=== PATIENT | male | born 1970 | race Caucasian/White ===

== ENCOUNTER 2016-09-27 13:22 | Observation (INO) | payer MEDICAID ==
[~2016-09-27] VITALS: Ht 170.2 cm; Wt 72.7 kg
[~2016-09-27 13:22] MED LIST: ARIP15TA2 PO; ASPI-621 PO; ATOR40TA78 PO; CARV3.122 PO; GLIP5TAB10 PO; HUM100VI6 SC; HYDR50CA2 PO; INSU100I13 SQ-INSULIN; INSU500V SC; ISOS60TA36 PO; LISI-167 PO; LISI2.5T PO; METF10002 PO; METO25TA35 PO; NICO1PAT5 TD; RANO500T2 PO; TICA90TA PO
[2016-09-27] MEDS ORDERED: PLEASE ENTER HEIGHT AND WEIGHT MC SCH (14:00)
[2016-09-27] MEDS ORDERED: SODIUM CHLORIDE FLUSH 10ML SYR IVF ONE (14:00)
[2016-09-27 14:09] LABS: HEMOGLOBIN 15.9 g/dL (13.7-18.0)
[2016-09-27 14:24] LABS: ASPARTATE AMINO TRANSFERASE 7 U/L (15-37); BLOOD UREA NITROGEN 21 mg/dL (7-18)
[2016-09-27 14:28] LABS: IS PT STATUS REG ER OR PRE ER? YES
[2016-09-27] MEDS ORDERED: SODIUM CHLORIDE FLUSH 10ML SYR IVF PRN (15:00)
[2016-09-27] MEDS ORDERED: ACETAMINOPHEN 325 MG TABLET PO PRN (16:30)
[2016-09-27] MEDS ORDERED: ONDANSETRON 2MG/ML, 2ML IVP PRN (16:30)
[2016-09-27] MEDS ORDERED: ENALAPRILAT 1.25 MG/ML, 2ML IVPush PRN ×2 (16:30→20:26)
[2016-09-27] MEDS ORDERED: MORPHINE SULFATE 4 MG/ML, 1ML IVPush PRN (16:30)
[2016-09-27] MEDS ORDERED: NITROGLYCERIN 0.4 MG BOTTLE (25 TABS) SL PRN (16:30)
[2016-09-27] MEDS: INSULIN REGULAR 100 UNITS/ML, 3ML VIAL SQ-INSULIN SCH ×2 (16:30→21:00)
[2016-09-27] MEDS ORDERED: NITROGLYCERIN 0.4 MG/SPRAY SL PRN (16:30)
[2016-09-27 16:52] VITALS: BP 126/78
[2016-09-27] MEDS ORDERED: INSULIN DETEMIR 100 UNITS/ML, PEN SQ-INSULIN PRN (17:00)
[2016-09-27 18:17] LABS: IS PT STATUS REG ER OR PRE ER? NO
[2016-09-27 20:35] VITALS: BP 105/68
[2016-09-27] MEDS ORDERED: ARIPIPRAZOLE 15 MG TABLET PO SCH (21:00)
[2016-09-27] MEDS ORDERED: ATORVASTATIN 40 MG TABLET PO SCH (21:00)
[2016-09-27] MEDS ORDERED: INSULIN DETEMIR 100 UNITS/ML, PEN SQ-INSULIN SCH (21:00)
[2016-09-27] MEDS: TICAGRELOR 90 MG TABLET PO SCH (22:22)
[2016-09-27 23:06] LABS: IS PT STATUS REG ER OR PRE ER? NO
[2016-09-28 03:10] VITALS: BP 109/71
[2016-09-28] MEDS ORDERED: ASPIRIN 325 MG TABLET EC PO SCH (06:00)
[2016-09-28] MEDS ORDERED: ASPIRIN 81 MG TABLET EC PO SCH (06:00)
[2016-09-28 07:01] VITALS: BP 96/59
[2016-09-28] MEDS ORDERED: REGADENOSON 0.4 MG/5 ML SYRINGE ONE (08:25)
[2016-09-28] MEDS: INSULIN REGULAR 100 UNITS/ML, 3ML VIAL SQ-INSULIN SCH ×3 (08:42→17:17)
[2016-09-28] MEDS ORDERED: LISINOPRIL 5 MG TABLET PO SCH (09:00)
[2016-09-28 11:46] VITALS: BP 113/72
[2016-09-28] MEDS: TICAGRELOR 90 MG TABLET PO SCH (11:47)
[2016-09-28 13:22] VITALS: BP 112/70
[2016-09-28] MEDS ORDERED: ARIP15TA2 PO (18:11)
[2016-09-28] MEDS ORDERED: TICA90TA PO (18:11)
[2016-09-28] MEDS ORDERED: ASPI-621 PO (18:11)
[2016-09-28] MEDS ORDERED: CARV3.12 PO (18:11)
[2016-09-28] MEDS ORDERED: ATOR40TA78 PO (18:11)
[2016-09-28] MEDS ORDERED: LISI5TAB7 PO (18:11)
[2016-09-28] MEDS ORDERED: INSU100I28 SQ-INSULIN (18:11)
[2016-09-28] MEDS ORDERED: METF10002 PO (18:11)
== END 2016-09-28 19:15 | disposition home or self-care (01) ==
LOC: ED 13:47 → INTOOBSV 14:54 → EDIP 14:54 → 5SO 16:44
PROVIDERS: ADMIT Family Medicine; ATTEND Family Medicine
DX: R07.9 Chest pain, unspecified (principal); E11.65 Type 2 diabetes mellitus with hyperglycemia; I21.4 Non-ST elevation (NSTEMI) myocardial infarction; I25.2 Old myocardial infarction; F31.9 Bipolar disorder, unspecified; I25.110 Atherosclerotic heart disease of native coronary artery with unstable angina pectoris; E87.1 Hypo-osmolality and hyponatremia; I11.0 Hypertensive heart disease with heart failure; I50.42 Chronic combined systolic (congestive) and diastolic (congestive) heart failure; F17.210 Nicotine dependence, cigarettes, uncomplicated; Z95.1 Presence of aortocoronary bypass graft; Z79.4 Long term (current) use of insulin
CPT/HCPCS: 36415; 71010; 78452; 80053; 80061; 82962; 83036; 83880; 84484; 85025; 93005; 93017; 96372; 99285; A9502; C9898; G0378; J1815; J2785

== ENCOUNTER 2017-02-07 09:02 | Emergency (ER) | payer MEDICAID ==
[~2017-02-07] VITALS: Ht 170.2 cm; Wt 75.0 kg
[~2017-02-07 09:02] MED LIST changes: +CARV3.12 PO; +INSU100I28 SQ-INSULIN; +LISI5TAB7 PO
[2017-02-07 09:07] VITALS: BP 97/64
[2017-02-07] MEDS ORDERED: SODIUM CHLORIDE FLUSH 10ML SYR IVF ONE (09:30)
[2017-02-07 09:47] LABS: ASPARTATE AMINO TRANSFERASE 11 U/L (15-37); BLOOD UREA NITROGEN 15 mg/dL (7-18)
[2017-02-07 09:54] LABS: IS PT STATUS REG ER OR PRE ER? YES
== END 2017-02-07 11:40 | disposition home or self-care (01) ==
LOC: ED 09:29
DX: M94.0 Chondrocostal junction syndrome [Tietze] (principal); Z76.0 Encounter for issue of repeat prescription; I10 Essential (primary) hypertension; E11.65 Type 2 diabetes mellitus with hyperglycemia; I25.10 Atherosclerotic heart disease of native coronary artery without angina pectoris; I25.2 Old myocardial infarction; F17.210 Nicotine dependence, cigarettes, uncomplicated; Z95.1 Presence of aortocoronary bypass graft; Z95.5 Presence of coronary angioplasty implant and graft
CPT/HCPCS: 36415; 71010; 80053; 84484; 85025; 93005; 99285

== ENCOUNTER 2017-02-13 21:16 | Inpatient (IN) | payer MEDICAID ==
[~2017-02-13] VITALS: Ht 170.2 cm; Wt 81.2 kg
[2017-02-13] MEDS ORDERED: PIPERACILLIN/TAZO/PMX 3.375GM 50 ML IVPB ONE (23:00)
[2017-02-13] MEDS ORDERED: MORPHINE SULFATE 4 MG/ML, 1ML IVPush PRN (23:00)
[2017-02-13] MEDS ORDERED: VANCOMYCIN PER PHARMACY IV ONE (23:00)
[2017-02-13] MEDS ORDERED: SODIUM CHLORIDE 0.9% 1,000ML IVBOLUS ONE (23:00)
[2017-02-13] MEDS ORDERED: VANCOMYCIN 1,400 MG in SODIUM CHLORIDE 0.9% 250 ML IV ONE (23:00)
[2017-02-13] MEDS ORDERED: ONDANSETRON 2MG/ML, 2ML IVPush ONE (23:00)
[2017-02-13] MEDS ORDERED: MORPHINE SULFATE 4 MG/ML, 1ML ONE (23:08)
[2017-02-13] MEDS ORDERED: PIPERACILLIN/TAZO/PMX 3.375GM 50 ML ONE (23:08)
[2017-02-13] MEDS ORDERED: ONDANSETRON 2MG/ML, 2ML ONE (23:08)
[2017-02-13 23:18] LABS: HEMATOCRIT 43.1 % (39.2-51.8); HEMOGLOBIN 14.3 g/dL (13.7-18.0); WHITE BLOOD COUNT 10.4 x10^3/uL (3.4-10)
[2017-02-13] MEDS ORDERED: INSU100V8 SQ (23:25)
[2017-02-13 23:28] LABS: BLOOD UREA NITROGEN 14 mg/dL (7-18)
[2017-02-14] MEDS ORDERED: INSULIN REGULAR 100 UNITS/ML, 3ML VIAL IVPush ONE
[2017-02-14] MEDS ORDERED: SODIUM CHLORIDE 0.9% 1,000ML IVBOLUS ONE
[2017-02-14] MEDS ORDERED: SODIUM CHLORIDE 0.9% 1,000 ML IV ONE (00:03)
[2017-02-14] MEDS ORDERED: INSULIN SINGLE DOSE, ER SQ-INSULIN ONE (00:09)
[2017-02-14] MEDS ORDERED: MORPHINE SULFATE 4 MG/ML, 1ML IVPush PRN ×2 (00:30→07:30)
[2017-02-14] MEDS ORDERED: ONDANSETRON 2MG/ML, 2ML IVPush PRN ×2 (00:30→01:30)
[2017-02-14 00:57] VITALS: BP 136/80
[2017-02-14] MEDS ORDERED: ONDANSETRON ODT 4 MG PO PRN (01:30)
[2017-02-14] MEDS ORDERED: DEXTROSE 4 GM TAB.CHEW PO PRN (01:30)
[2017-02-14] MEDS ORDERED: ACETAMINOPHEN 325 MG TABLET PO PRN (01:30)
[2017-02-14] MEDS ORDERED: VANCOMYCIN PER PHARMACY MC PRN (01:30)
[2017-02-14] MEDS ORDERED: DEXTROSE 50%, 50ML SYRINGE IVPush PRN (01:30)
[2017-02-14] MEDS: INSULIN ASPART 100 UNITS/ML, PEN SQ-INSULIN SCH ×5 (01:30→20:24)
[2017-02-14] MEDS ORDERED: LABETALOL 5MG/ML, 20ML IVPush PRN (01:30)
[2017-02-14] MEDS ORDERED: GLUCAGON 1 MG IM PRN (01:30)
[2017-02-14] MEDS: SODIUM CHLORIDE 0.9% 1,000 ML IV SCH ×2 (02:55→14:58)
[2017-02-14 02:56] LABS: HEMATOCRIT 39.8 % (39.2-51.8); HEMOGLOBIN 13.2 g/dL (13.7-18.0); WHITE BLOOD COUNT 10.6 x10^3/uL (3.4-10)
[2017-02-14] MEDS ORDERED: VANCOMYCIN 1,400 MG in SODIUM CHLORIDE 0.9% 250 ML IV SCH (03:00)
[2017-02-14] MEDS ORDERED: PHARMACOKINETIC MONITORING MC PRN (03:00)
[2017-02-14] MEDS ORDERED: PHARMACOKINETIC CONSULTATION MC ONE (03:00)
[2017-02-14 03:07] LABS: BLOOD UREA NITROGEN 14 mg/dL (7-18)
[2017-02-14] MEDS: PIPERACILLIN/TAZO/PMX 3.375GM 50 ML IV SCH ×4 (04:16→21:58)
[2017-02-14] MEDS: ENOXAPARIN 40 MG/0.4 ML SQ SCH (06:00)
[2017-02-14] MEDS: ASPIRIN 81 MG TABLET EC PO SCH (06:00)
[2017-02-14 07:45] VITALS: BP 129/75
[2017-02-14] MEDS: INSULIN DETEMIR 100 UNITS/ML, PEN SQ-INSULIN SCH ×3 (09:00→20:25)
[2017-02-14] MEDS: LISINOPRIL 5 MG TABLET PO SCH (11:13)
[2017-02-14] MEDS: CARVEDILOL 3.125 MG TABLET PO SCH ×2 (11:13→20:23)
[2017-02-14] MEDS: SODIUM CHLORIDE FLUSH 10ML SYR IVF SCH ×2 (11:14→20:17)
[2017-02-14] MEDS: VANCOMYCIN 1,400 MG in SODIUM CHLORIDE 0.9% 250 ML IV SCH ×2 (12:24→23:57)
[2017-02-14 14:20] VITALS: BP 122/72
[2017-02-14 19:07] VITALS: BP 153/82
[2017-02-14] MEDS: ATORVASTATIN 40 MG TABLET PO SCH (20:23)
[2017-02-14] MEDS: ARIPIPRAZOLE 15 MG TABLET PO SCH (20:24)
[2017-02-15] MEDS: SODIUM CHLORIDE 0.9% 1,000 ML IV SCH ×2 (00:01→11:09)
[2017-02-15 01:53] VITALS: BP 129/71
[2017-02-15] MEDS: PIPERACILLIN/TAZO/PMX 3.375GM 50 ML IV SCH ×3 (03:52→23:11)
[2017-02-15] MEDS: ASPIRIN 81 MG TABLET EC PO SCH (06:07)
[2017-02-15] MEDS: ENOXAPARIN 40 MG/0.4 ML SQ SCH (06:08)
[2017-02-15 06:28] LABS: HEMATOCRIT 40.4 % (39.2-51.8); HEMOGLOBIN 13.1 g/dL (13.7-18.0); WHITE BLOOD COUNT 11.2 x10^3/uL (3.4-10)
[2017-02-15 06:37] LABS: BLOOD UREA NITROGEN 16 mg/dL (7-18)
[2017-02-15 07:50] VITALS: BP 149/80
[2017-02-15] MEDS: INSULIN DETEMIR 100 UNITS/ML, PEN SQ-INSULIN SCH (08:06)
[2017-02-15] MEDS: INSULIN ASPART 100 UNITS/ML, PEN SQ-INSULIN SCH ×4 (08:06→23:24)
[2017-02-15] MEDS: CARVEDILOL 3.125 MG TABLET PO SCH ×2 (08:07→23:13)
[2017-02-15] MEDS: SODIUM CHLORIDE FLUSH 10ML SYR IVF SCH ×2 (08:07→23:11)
[2017-02-15] MEDS: LISINOPRIL 5 MG TABLET PO SCH (08:07)
[2017-02-15] MEDS: VANCOMYCIN 1,400 MG in SODIUM CHLORIDE 0.9% 250 ML IV SCH (12:29)
[2017-02-15 15:27] VITALS: BP 150/82
[2017-02-15] MEDS ORDERED: FENTANYL PF 100 MCG/2ML ONE ×2 (17:10→17:58)
[2017-02-15] MEDS ORDERED: NEOSTIGMINE 1 MG/ML, 10ML ONE (17:11)
[2017-02-15] MEDS ORDERED: SUCCINYLCHOLINE 20 MG/ML, 10ML ONE (17:11)
[2017-02-15] MEDS ORDERED: ROCURONIUM 10 MG/ML ONE (17:11)
[2017-02-15] MEDS ORDERED: LIDOCAINE 1%, 20ML ONE (17:11)
[2017-02-15] MEDS ORDERED: PROPOFOL 10 MG/ML, 20ML ONE (17:11)
[2017-02-15] MEDS ORDERED: ONDANSETRON 2MG/ML, 2ML ONE (17:11)
[2017-02-15] MEDS ORDERED: GLYCOPYRROLATE 0.2MG/1ML ONE (17:11)
[2017-02-15] MEDS ORDERED: MEPERIDINE/PF 25MG/0.5ML IVPush PRN ×2 (17:30→18:30)
[2017-02-15] MEDS ORDERED: HYDROmorphone 1 MG/ML, 1ML IV PRN (17:30)
[2017-02-15] MEDS ORDERED: ONDANSETRON 2MG/ML, 2ML IVPush PRN ×3 (17:30→18:30)
[2017-02-15] MEDS ORDERED: OXYcodone 5 MG/5 ML ORAL.SOL UDC PO PRN ×2 (17:30→18:30)
[2017-02-15] MEDS ORDERED: LABETALOL 5MG/ML, 20ML IV PRN ×2 (17:30→18:30)
[2017-02-15] MEDS ORDERED: MIDAZOLAM 1 MG/ML, 5ML IV PRN ×2 (17:30→18:30)
[2017-02-15] MEDS ORDERED: hydrALAzine 20 MG/ML, 1ML IV PRN ×2 (17:30→18:30)
[2017-02-15] MEDS ORDERED: PROMETHAZINE 25 MG/ML, 1ML IV PRN ×2 (17:30→18:30)
[2017-02-15] MEDS ORDERED: OXYcodone 5 MG/5 ML ORAL.SOL UDC ONE (17:58)
[2017-02-15] MEDS: FENTANYL PF 100 MCG/2ML IV PRN ×2 (18:00→18:22)
[2017-02-15] MEDS ORDERED: LABETALOL 5MG/ML, 20ML IVPush PRN (18:17)
[2017-02-15] MEDS ORDERED: DEXTROSE 50%, 50ML SYRINGE IVPush PRN (18:30)
[2017-02-15] MEDS ORDERED: VANCOMYCIN PER PHARMACY MC PRN (18:30)
[2017-02-15] MEDS ORDERED: GLUCAGON 1 MG IM PRN (18:30)
[2017-02-15] MEDS ORDERED: DEXTROSE 4 GM TAB.CHEW PO PRN (18:30)
[2017-02-15] MEDS ORDERED: ONDANSETRON ODT 4 MG PO PRN (18:30)
[2017-02-15] MEDS ORDERED: PHARMACOKINETIC MONITORING MC PRN (18:30)
[2017-02-15] MEDS ORDERED: HYDROmorphone 1 MG/ML, 1ML ONE (18:35)
[2017-02-15] MEDS: HYDROmorphone 1 MG/ML, 1ML IV PRN ×2 (18:40→18:50)
[2017-02-15 19:15] VITALS: BP 151/76
[2017-02-15] MEDS: ARIPIPRAZOLE 15 MG TABLET PO SCH (21:00)
[2017-02-15] MEDS: ATORVASTATIN 40 MG TABLET PO SCH (23:14)
[2017-02-15] MEDS: MORPHINE SULFATE 4 MG/ML, 1ML IVPush PRN (23:32)
[2017-02-16] MEDS: VANCOMYCIN 1,400 MG in SODIUM CHLORIDE 0.9% 250 ML IV SCH ×2 (00:26→12:39)
[2017-02-16 00:50] VITALS: BP 149/79
[2017-02-16 05:03] LABS: HEMATOCRIT 40.9 % (39.2-51.8); HEMOGLOBIN 13.5 g/dL (13.7-18.0)
[2017-02-16 05:11] LABS: BLOOD UREA NITROGEN 16 mg/dL (7-18)
[2017-02-16] MEDS: SODIUM CHLORIDE 0.9% 1,000 ML IV SCH ×2 (05:35→16:23)
[2017-02-16] MEDS: PIPERACILLIN/TAZO/PMX 3.375GM 50 ML IV SCH ×4 (05:36→23:36)
[2017-02-16] MEDS: ASPIRIN 81 MG TABLET EC PO SCH (06:00)
[2017-02-16] MEDS: ENOXAPARIN 40 MG/0.4 ML SQ SCH (06:51)
[2017-02-16] MEDS ORDERED: INSULIN DETEMIR 100 UNITS/ML, PEN SQ-INSULIN SCH (07:30)
[2017-02-16] MEDS: INSULIN DETEMIR 100 UNITS/ML, PEN SQ-INSULIN SCH (07:59)
[2017-02-16] MEDS: CARVEDILOL 3.125 MG TABLET PO SCH ×2 (08:00→20:47)
[2017-02-16] MEDS: INSULIN ASPART 100 UNITS/ML, PEN SQ-INSULIN SCH ×4 (08:00→20:47)
[2017-02-16] MEDS: LISINOPRIL 5 MG TABLET PO SCH (08:00)
[2017-02-16] MEDS: SODIUM CHLORIDE FLUSH 10ML SYR IVF SCH ×2 (08:01→20:47)
[2017-02-16 08:13] VITALS: BP 154/77
[2017-02-16] MEDS: HYDROmorphone 1 MG/ML, 1ML IV PRN (08:23)
[2017-02-16 17:18] VITALS: BP 136/73
[2017-02-16 20:41] VITALS: BP 146/79
[2017-02-16] MEDS: ARIPIPRAZOLE 15 MG TABLET PO SCH (20:46)
[2017-02-16] MEDS: ATORVASTATIN 40 MG TABLET PO SCH (20:47)
[2017-02-16] MEDS: MORPHINE SULFATE 4 MG/ML, 1ML IVPush PRN (23:36)
[2017-02-17] MEDS: SODIUM CHLORIDE 0.9% 1,000 ML IV SCH ×2 (03:12→14:12)
[2017-02-17 03:14] VITALS: BP 159/83
[2017-02-17] MEDS: PIPERACILLIN/TAZO/PMX 3.375GM 50 ML IV SCH ×3 (05:22→16:49)
[2017-02-17] MEDS: ASPIRIN 81 MG TABLET EC PO SCH (05:22)
[2017-02-17] MEDS: ENOXAPARIN 40 MG/0.4 ML SQ SCH (05:22)
[2017-02-17 07:01] LABS: HEMATOCRIT 39.3 % (39.2-51.8); HEMOGLOBIN 13.1 g/dL (13.7-18.0); WHITE BLOOD COUNT 12.9 x10^3/uL (3.4-10)
[2017-02-17 07:16] VITALS: BP 120/46
[2017-02-17 07:24] VITALS: BP 148/88
[2017-02-17] MEDS ORDERED: hydrALAzine 20 MG/ML, 1ML IV PRN (07:30)
[2017-02-17] MEDS: INSULIN DETEMIR 100 UNITS/ML, PEN SQ-INSULIN SCH (07:51)
[2017-02-17] MEDS: INSULIN ASPART 100 UNITS/ML, PEN SQ-INSULIN SCH ×4 (07:52→20:00)
[2017-02-17] MEDS: SODIUM CHLORIDE FLUSH 10ML SYR IVF SCH ×2 (09:00→19:55)
[2017-02-17] MEDS: LISINOPRIL 5 MG TABLET PO SCH (09:41)
[2017-02-17] MEDS: MORPHINE SULFATE 4 MG/ML, 1ML IVPush PRN ×2 (09:41→21:56)
[2017-02-17] MEDS: CARVEDILOL 3.125 MG TABLET PO SCH ×2 (09:41→19:55)
[2017-02-17 12:35] VITALS: BP 132/75
[2017-02-17] MEDS: ATORVASTATIN 40 MG TABLET PO SCH (19:55)
[2017-02-17] MEDS: ARIPIPRAZOLE 15 MG TABLET PO SCH (19:55)
[2017-02-17 20:00] VITALS: BP 149/72
[2017-02-18 02:56] VITALS: BP 152/79
[2017-02-18] MEDS: PIPERACILLIN/TAZO/PMX 3.375GM 50 ML IV SCH ×4 (03:43→21:57)
[2017-02-18] MEDS: ASPIRIN 81 MG TABLET EC PO SCH (06:40)
[2017-02-18] MEDS: ENOXAPARIN 40 MG/0.4 ML SQ SCH (06:40)
[2017-02-18 07:41] LABS: HEMATOCRIT 41.4 % (39.2-51.8); HEMOGLOBIN 13.7 g/dL (13.7-18.0); WHITE BLOOD COUNT 12.5 x10^3/uL (3.4-10)
[2017-02-18 07:58] LABS: BLOOD UREA NITROGEN 13 mg/dL (7-18)
[2017-02-18 08:03] VITALS: BP 155/80
[2017-02-18] MEDS: MORPHINE SULFATE 4 MG/ML, 1ML IVPush PRN (08:42)
[2017-02-18] MEDS: INSULIN ASPART 100 UNITS/ML, PEN SQ-INSULIN SCH ×4 (08:46→21:59)
[2017-02-18] MEDS: INSULIN DETEMIR 100 UNITS/ML, PEN SQ-INSULIN SCH (08:47)
[2017-02-18] MEDS: LISINOPRIL 5 MG TABLET PO SCH (08:48)
[2017-02-18] MEDS: CARVEDILOL 3.125 MG TABLET PO SCH ×2 (08:48→21:57)
[2017-02-18] MEDS: SODIUM CHLORIDE FLUSH 10ML SYR IVF SCH ×2 (08:54→21:57)
[2017-02-18] MEDS: SODIUM CHLORIDE 0.9% 1,000 ML IV SCH ×2 (08:54→21:58)
[2017-02-18] MEDS: LACTOBACILLUS CHEW TABLET PO SCH ×3 (10:30→21:56)
[2017-02-18 14:50] VITALS: BP 158/78
[2017-02-18 20:00] VITALS: BP 137/71
[2017-02-18] MEDS: ATORVASTATIN 40 MG TABLET PO SCH (21:56)
[2017-02-18] MEDS: ARIPIPRAZOLE 15 MG TABLET PO SCH (21:57)
[2017-02-19] MEDS: PIPERACILLIN/TAZO/PMX 3.375GM 50 ML IV SCH (03:13)
[2017-02-19 03:16] VITALS: BP 144/75
[2017-02-19] MEDS: ENOXAPARIN 40 MG/0.4 ML SQ SCH (06:32)
[2017-02-19] MEDS: ASPIRIN 81 MG TABLET EC PO SCH (06:32)
[2017-02-19 07:52] LABS: HEMATOCRIT 40.3 % (39.2-51.8); HEMOGLOBIN 13.3 g/dL (13.7-18.0); WHITE BLOOD COUNT 11.9 x10^3/uL (3.4-10)
[2017-02-19 07:57] LABS: BLOOD UREA NITROGEN 12 mg/dL (7-18)
[2017-02-19 08:38] VITALS: BP 141/78
[2017-02-19] MEDS: INSULIN DETEMIR 100 UNITS/ML, PEN SQ-INSULIN SCH (08:48)
[2017-02-19] MEDS: INSULIN ASPART 100 UNITS/ML, PEN SQ-INSULIN SCH ×2 (08:49→12:23)
[2017-02-19] MEDS: LACTOBACILLUS CHEW TABLET PO SCH (08:50)
[2017-02-19] MEDS: CARVEDILOL 3.125 MG TABLET PO SCH (08:50)
[2017-02-19] MEDS: SODIUM CHLORIDE FLUSH 10ML SYR IVF SCH (08:50)
[2017-02-19] MEDS: SODIUM CHLORIDE 0.9% 1,000 ML IV SCH (08:50)
[2017-02-19] MEDS: LISINOPRIL 5 MG TABLET PO SCH (08:51)
[2017-02-19] MEDS ORDERED: ACID1TAB7 PO (11:39)
[2017-02-19] MEDS ORDERED: TRAM50TA2 PO (11:39)
[2017-02-19] MEDS ORDERED: AMOX1TAB12 PO (11:39)
[2017-02-19] MEDS: MORPHINE SULFATE 4 MG/ML, 1ML IVPush PRN (11:50)
[2017-02-19] MEDS ORDERED: AMOXICILLIN/CLAV 875-125MG TABLET PO SCH (21:00)
== END 2017-02-19 12:00 | disposition home health service (06) | DRG 580 ==
LOC: ED 23:43 → EDIP 02-14 00:03 → 4WST 02-14 00:59
PROVIDERS: ADMIT Family Medicine; ATTEND Family Medicine
PROC: 0Y950ZZ Drainage of Right Inguinal Region, Open Approach (ICD-10-PCS; principal; 2017-02-15 17:15)
DX: L02.214 Cutaneous abscess of groin (principal); L03.115 Cellulitis of right lower limb; E11.65 Type 2 diabetes mellitus with hyperglycemia; E78.1 Pure hyperglyceridemia; F17.210 Nicotine dependence, cigarettes, uncomplicated; F31.9 Bipolar disorder, unspecified; I11.0 Hypertensive heart disease with heart failure; I25.10 Atherosclerotic heart disease of native coronary artery without angina pectoris; I50.9 Heart failure, unspecified; B96.5 Pseudomonas (aeruginosa) (mallei) (pseudomallei) as the cause of diseases classified elsewhere; N49.2 Inflammatory disorders of scrotum; N50.89 Other specified disorders of the male genital organs; Z79.4 Long term (current) use of insulin; Z79.84 Long term (current) use of oral hypoglycemic drugs; Z82.49 Family history of ischemic heart disease and other diseases of the circulatory system; Z95.5 Presence of coronary angioplasty implant and graft; Z83.3 Family history of diabetes mellitus; Z82.5 Family history of asthma and other chronic lower respiratory diseases; Z95.1 Presence of aortocoronary bypass graft
CPT/HCPCS: 36415; 80048; 80202; 82040; 82565; 82962; 83036; 83605; 84145; 85025; 87040; 87070; 87077; 87147; 87205; 96365; 96367; 96375; J1170; J1650; J1815; J2405; J2543; J2704; J2710; J3010; J3370; J3490; J0330; J7030; J7050